=== PATIENT | male | born 1990 | race Caucasian/White ===

== ENCOUNTER 2018-09-06 13:37 | Emergency (ER) | payer BC ==
[2018-09-06] MEDS ORDERED: Haloperidol Lactate 5 MG/ML SDV IM ONE (14:19)
--- NOTE | 2018-09-06 14:22 | EDM.PDOC ---
ED HPI GENERAL MEDICAL PROBLEM - General Chief Complaint: Headache Stated Complaint: HEADACHE Time Seen by Provider: 09/06/18 13:46 Source of Information: Reports: Patient, RN Notes Reviewed History Limitations: Reports: No Limitations - History of Present Illness INITIAL COMMENTS - FREE TEXT/NARRATIVE: The patient states that he has had a headache felt in the back of his head since 09/01/2018. It is sharp in character, and constant, although made worse if he coughs. He states that it feels better if he palpates the back of his head. The patient also reports that he feels lightheaded when upright since 09/02/2018. He denies having any visual changes, such as blurry vision, wavy lines, or flashing lights. He reports mild photophobia, but denies phonophobia. He reports having some tingling in his hands and feet since Tuesday. No nausea or vomiting. The patient also reports having a dry cough since 09/01/2018. He has had rhinorrhea, but denies having sinus pressure or congestion. He reports a decreased appetite. He also reports low back pain since Tuesday. No recent fever , constipation, diarrhea, or urinary symptoms. The patient states that he has taken Advil, NyQuil, Tylenol, and some concoction made by his fiance, all without relief. No prior similar symptoms. The patient states that he saw his PCP earlier today. He states that blood work and chest x-ray were performed, all of which were normal. He was then prescribed Levaquin, of which she has taken 1 dose so far. Here in the ED, the patient is hemodynamically stable, afebrile, saturating 100 % on room air. The patient's PCP is Shelia Beal. Lower Posterior Head Pain Score (Numeric/FACES): 6 - Related Data Allergies Allergy/AdvReac Type Severity Reaction Status Date / Time No Known Allergies Allergy Verified 09/06/18 13:45 Home Meds: Home Meds Hydrocodone/Acetaminophen [Hydrocodon-Acetaminophen 5-325] 1 tab PO QID PRN 03/17 [History] Orphenadrine [Norflex] 1 tab PO Q12H PRN #20 tab.er 09/06/18 [Rx] Past Medical History Respiratory History: Reports: Sleep Apnea (wears nightly AutoPAP) - Past Surgical History HEENT Surgical History: Reports: Myringotomy w Tube(s) (bilateral), Tonsillectomy GI Surgical History: Reports: Hernia, Inguinal (right) Musculoskeletal Surgical History: Reports: ORIF (right hand) Social & Family History - Tobacco Use Tobacco Use Within Last Twelve Months: Smokeless Tobacco (chews 3/4 can/day) - Caffeine Use Caffeine Use: Reports: None - Alcohol Use Alcohol Use History: Yes Alcohol Use Frequency: Socially (not heavily since late 2016) - Recreational Drug Use Recreational Drug Use: No - Living Situation & Occupation Living situation: Reports: Single, with Significant Other (Fiance = one of her children) 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 - Physical Exam Exam: See Below Exam Limited By: No Limitations General Appearance: Alert, WD/WN, No Apparent Distress Eye Exam: Bilateral Eye: EOMI, Normal Inspection, PERRL Ears: Normal External Exam, Normal Canal, Hearing Grossly Normal, Normal TMs Nose: Normal Inspection, Normal Mucosa, No Blood Throat/Mouth: Normal Inspection, Normal Lips, Normal Teeth, Normal Gums, Normal Oropharynx, Normal Voice, No Airway Compromise Head Exam: Atraumatic, Normocephalic, Scalp Tenderness (occipital, at the insertion of the posterior paracervical muscles, only), Other Neck: Normal Inspection, Supple, Non-Tender, Full Range of Motion, Other ( Posterior scalp pain reproduced with conmpression of the neck, although not with turning the head fully to the left, right, typically chin to the chest, or fully extending the neck.) Respiratory/Chest: No Respiratory Distress, Lungs Clear, Normal Breath Sounds, No Accessory Muscle Use. No: Crackles Cardiovascular: Normal Peripheral Pulses, Regular Rate, Rhythm, No Edema, No Gallop, No JVD, No Murmur, No Rub GI/Abdominal: Normal Bowel Sounds, Soft, Non-Tender, No Organomegaly, No Distention, No Abnormal Bruit, No Mass (Male) Exam: Deferred Rectal (Males) Exam: Deferred Neuro Exam (Abbreviated): Alert, Oriented, CN II-XII Intact, Normal Cognition, No Motor/Sensory Deficits Back Exam: Normal Inspection, Full Range of Motion, NT Extremities: Normal Inspection, Normal Range of Motion, No Pedal Edema, Normal Capillary Refill Psychiatric: Normal Affect Skin Exam: Warm, Dry, Intact, Normal Color, No Rash Course - Vital Signs Last Recorded V/S: Last Vital Signs Temp 36.9 C 09/06/18 13:47 Pulse 78 09/06/18 13:47 Resp 13 09/06/18 13:47 BP 147/91 H 09/06/18 13:47 Pulse Ox 100 09/06/18 13:47 - Orders/Labs/Meds Meds: Medications Discontinued Medications Generic Name Dose Route Start Last Admin Trade Name Hernando PRN Reason Stop Dose Admin Haloperidol Lactate 5 mg 09/06/18 14:19 09/06/18 14:24 Haldol IM 09/06/18 14:20 5 mg ONETIME ONE Administration Orphenadrine Citrate 100 mg 09/06/18 14:57 09/06/18 15:04 Norflex PO 09/06/18 14:58 100 mg ONETIME STA Administration - Re-Assessments/Exams Free Text/Narrative Re-Assessment/Exam: 09/06/18 14:21 I think it unlikely that the patient's headache is migrainous, however, in order to rule this possibility out, the patient will receive a single dose of IM Haldol. If that fails, I will start the patient on Norflex for treatment of a tension headache. In addition, the patient likely has a sinusitis component, specifically, ethmoid sinusitis, that may be responsible for his disequilibrium with change of position. For that, I would recommend oxymetazoline nasal spray twice a day for a few days, along with nasal saline spray. If all of that fails , at that point I would recommend an outpatient MRI of the head. Because the patient's neurologic exam is completely normal, I am not recommending an emergency CT scan of the head at this time. 09/06/18 15:02 The patient had no improvement whatsoever of his headache following IM Haldol. This effectively rules out migraine etiology. I have ordered Norflex, and will prescribe additional. In addition, I am recommending the patient take over-the- counter oxymetazoline for up to 5 days. If his headache persists, I would like him to follow-up with his PCP to arrange for a MRI. Because the patient has no clinical or radiographic symptoms consistent with pneumonia, I am recommending that he discontinue the Levaquin that was prescribed to him earlier today. Departure - Departure Time of Disposition: 15:04 Disposition: Home, Self-Care 01 Condition: Fair Clinical Impression: Tension headache, Viral URI with cough - Discharge Information *PRESCRIPTION DRUG MONITORING PROGRAM REVIEWED*: Not Applicable *COPY OF PRESCRIPTION DRUG MONITORING REPORT IN PATIENT PAMELA: Not Applicable Prescriptions: Orphenadrine [Norflex] 1 tab PO Q12H PRN #20 tab.er PRN Reason: Muscle Spasm Referrals: Shelia Beal [employer] ADVISOR [Primary Care Provider] - Forms: ED Department Discharge Additional Instructions: You were seen in the emergency room for a persistent headache felt in the back of your head, along with lightheadedness when you are upright, a runny nose, and a cough. Based on your history and physical examination, your headache is most likely a tension-type headache, although you may also have some component of ethmoid sinusitis as a result of a viral URI. You have been started on the muscle relaxant Norflex. A prescription for Norflex has been sent to the clinic pharmacy, located in the [facility] across [address] from the hospital. Take one tablet of Norflex every 12 hours, starting tomorrow morning, , 09/07/2018, as prescribed. In addition to Norflex, we recommend that you purchase [id number] oxymetazoline nasal spray in a "pump mist" bottle. [place] one spray up each nostril, wait 5 minutes, then spray a second spray up each nostril. Repeat every 12 hours, for a maximum of 5 days. In addition to oxymetazoline nasal spray, you may also purchase nasal saline spray in a pressurized can, such as "Simply Saline". [place] this up each nostril several times per day. If your headache has not improved within 5 days, please follow-up with your PCP , Shelia Beal, to arrange for an outpatient MRI of your head. As discussed, because you do not have either clinical or radiographic evidence of pneumonia, we recommend that you discontinue the Levaquin that you were prescribed earlier today. We recommend that you throw the remaining tablets in the trash - do not flush them down the toilet. If any other problems, please do not hesitate to return to the ER.
[2018-09-06] MEDS ORDERED: Orphenadrine 100 MG Tab.ER PO STA (14:57)
== END 2018-09-06 15:20 | disposition home or self-care (01) ==
LOC: JD.ED 13:37
DX: G44.209 Tension-type headache, unspecified, not intractable (principal); J06.9 Acute upper respiratory infection, unspecified; F17.290 Nicotine dependence, other tobacco product, uncomplicated
CPT/HCPCS: 96372; 99283; A9270; J1630

== ENCOUNTER 2021-03-28 18:34 | Emergency (ER) | payer BC ==
--- NOTE | 2021-03-28 20:06 | EDM.PDOC ---
ED HPI GENERAL MEDICAL PROBLEM - General Chief Complaint: Back Pain or Injury Stated Complaint: BACK INJURY/NUMBESS IN LEGS Time Seen by Provider: 03/28/21 19:56 - History of Present Illness INITIAL COMMENTS - FREE TEXT/NARRATIVE: 30-year-old male presents the emergency room with back pain. This started early this morning patient was helping his [id number] cut down a tree patient was patient in with a chain saw got himself in an awkward position felt some pop in his low back and he had to stop what he was doing because of excruciating pain. Patient has pain down both legs. He did not fall no traumatic event he was not heavy lifting when this happened. Patient has not had any loss of bowel or bladder control but he has tingling down into his feet at times. Patient does not have a significant history of back problems in the past. Treatments [employer]PERATOR: Reports: Acetaminophen Lower Back Pain Score (Numeric/FACES): 10 - Related Data Allergies Allergy/AdvReac Type Severity Reaction Status Date / Time No Known Allergies Allergy Verified 03/28/21 19:21 Home Meds: Home Meds Hydrocodone/Acetaminophen [Hydrocodon-Acetaminophen 5-325] 1 tab PO QID PRN 09/06/18 [History] Naproxen [Naprosyn] 500 mg PO BID #14 tab 03/28/21 [Rx] Orphenadrine [Norflex] 100 mg PO BID PRN #14 tab 03/28/21 [Rx] Past Medical History Cardiovascular History: Reports: None Respiratory History: Reports: Sleep Apnea Genitourinary History: Reports: None Neurological History: Reports: None Psychiatric History: Reports: None Endocrine/Metabolic History: Reports: None Hematologic History: Reports: None Immunologic History: Reports: None Oncologic (Cancer) History: Reports: None Dermatologic History: Reports: None - Infectious Disease History Infectious Disease History: Reports: Chicken Pox - Past Surgical History HEENT Surgical History: Reports: Myringotomy w Tube(s), Tonsillectomy Other HEENT Surgeries/Procedures: throat abscess GI Surgical History: Reports: Hernia, Inguinal Musculoskeletal Surgical History: Reports: ORIF Other Musculoskeletal Surgeries/Procedures:: plates and screws in the right hand 2011 after crush injury Social & Family History - Tobacco Use Years of Tobacco use: 19 Second Hand Smoke Exposure: No - Caffeine Use Caffeine Use: Reports: Coffee Caffeine Use Comment: 3 cups daily - Alcohol Use Days Per Week of Alcohol Use: 1 Number of Drinks Per Day: 0 Total Drinks Per Week: 0 - Recreational Drug Use Recreational Drug Use: No - Living Situation & Occupation Living situation: Reports: Single, with Significant Other (Mason = one of her children) 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) ED ROS GENERAL - Review of Systems Review Of Systems: See Below Constitutional: Reports: No Symptoms, Weight Gain HEENT: Reports: Vertigo Cardiovascular: Reports: No Symptoms Endocrine: Reports: No Symptoms GI/Abdominal: Reports: No Symptoms : Reports: No Symptoms Musculoskeletal: Reports: No Symptoms, Other (Difficulty walking most likely due to muscle spasm) Skin: Reports: No Symptoms Neurological: Reports: Other (May have developed some sensory radicular symptoms in his lower extremities) Psychiatric: Reports: No Symptoms Hematologic/Lymphatic: Reports: No Symptoms ED EXAM, GENERAL - Physical Exam Exam: See Below Exam Limited By: No Limitations General Appearance: Alert, No Apparent Distress, Other (Typographical error on the patient's temperature this was rechecked and found to be normal) Head: Atraumatic, Normocephalic Neck: Normal Inspection, Supple, Non-Tender, Full Range of Motion Respiratory/Chest: No Respiratory Distress, Lungs Clear Cardiovascular: Regular Rate, Rhythm, No Edema, No Murmur GI/Abdominal: Normal Bowel Sounds, Soft, Non-Tender Back Exam: Paraspinal Tenderness (Sinus muscle tenderness noted bilaterally seems to be a little worse on the right). No: Vertebral Tenderness Extremities: Other (Full straight leg raises and near 90 degrees causes quite a bit of discomfort in the buttocks and low back. Patient states he has a vague numbness sensation in his feet I cannot differentiate which dermatome this follows. But with gentle decompression of the legs this resolves) Course - Vital Signs Last Recorded V/S: Last Vital Signs Temp 36.2 C 03/28/21 20:19 Pulse 92 03/28/21 19:22 Resp 18 03/28/21 19:22 BP 140/81 03/28/21 19:22 Pulse Ox 95 03/28/21 19:22 - Orders/Labs/Meds Meds: Medications Discontinued Medications Generic Name Dose Route Start Last Admin Trade Name Freq PRN Reason Stop Dose Admin Ketorolac Tromethamine 60 mg 03/28/21 20:22 03/28/21 20:36 Ketorolac 60 Mg/2 Ml Sdv IM 03/28/21 20:23 60 mg ONETIME ONE Administration Orphenadrine Citrate 100 mg 03/28/21 20:23 03/28/21 20:36 Orphenadrine 100 Mg Tab.Er PO 03/28/21 20:24 100 mg ONETIME ONE Administration - Re-Assessments/Exams Free Text/Narrative Re-Assessment/Exam: 03/28/21 21:21 Patient received Norflex and IM Toradol he is still sore but he is up and moving around. I will send him home with Naprosyn and a Norflex to take in the morning and sent prescriptions for both these to [facility] as they are the only pharmacy open tomorrow Departure - Departure Time of Disposition: 21:21 Disposition: Home, Self-Care 01 Clinical Impression: Low back strain - Discharge Information Referrals: Shelia Beal NP [Primary Care Provider] - Forms: ED Department Discharge Additional Instructions: Return to the emergency room with any questions problems or worsening symptoms. Follow-up in the clinic on Tuesday or Tuesday for recheck. You been started on Naprosyn take 1 twice daily with your morning and evening meals. You have also been started on Norflex this is a muscle relaxant. This can cause sedation so until you know how it affects your system do not drive or return to work within 12 hours of using this. Sepsis Event Note (ED) - Evaluation Sepsis Screening Result: No Definite Risk - Focused Exam Vital Signs: Vital Signs Temp Pulse Resp BP Pulse Ox 03/28/21 20:19 36.2 C 03/28/21 19:22 526.2 C H 92 18 140/81 95
[2021-03-28] MEDS ORDERED: Ketorolac 60 MG/2 ML SDV IM ONE (20:22)
[2021-03-28] MEDS ORDERED: Orphenadrine 100 MG Tab.ER PO ONE ×2 (20:23→21:22)
[2021-03-28] MEDS ORDERED: Naproxen 500 MG Tab PO ONE (21:22)
[2021-03-28] MEDS ORDERED: Orphenadrine 100 MG Tab.ER ONE (21:32)
[2021-03-29] MEDS ORDERED: Orphenadrine 100 MG Tab.ER PO ONE (21:22)
== END 2021-03-28 21:33 | disposition home or self-care (01) ==
LOC: JD.ED 18:34
DX: S39.012A Strain of muscle, fascia and tendon of lower back, initial encounter (principal); Z72.0 Tobacco use; X50.0XXA Overexertion from strenuous movement or load, initial encounter
CPT/HCPCS: 96372; 99283; A9270; J1885